=== PATIENT | female | born 1930 | race Caucasian/White ===

== ENCOUNTER 2019-02-07 23:43 | Emergency (ER) | payer MEDICARE, OTHER ==
[~2019-02-07] VITALS: Ht 175.3 cm; Wt 75.0 kg
[2019-02-07 23:47] VITALS: Ht 175.3 cm; Wt 75.0 kg
[2019-02-08] MEDS ORDERED: DIATR MEGLU/DIATRIZOATE SODIUM 30 ML SOLUTION PO ONE
[2019-02-08] MEDS ORDERED: IOHEXOL 300MG/ML 30 ML BTL ONE ×2 (00:16→00:17)
--- NOTE | 2019-02-08 01:10 | ERD ---
ER Documentation Chief Complaint Chief Complaint bib ra from [facility] for g-tube replacement HPI This is an 88-year-old female with a past medical history of hypertension, hyperlipidemia dementia, ambulatory dysfunction, dysphagia status post G-tube placement, residing at a senior care facility who is presenting for a G-tube replacement. The patient's G-tube reportedly fell out this evening. It is unclear if the patient excellently pulled it out or it was actually pulled out in another way. There is no bleeding. The patient is in no distress. History and physical is limited secondary to clinical condition. ROS Limited secondary to clinical condition Allergies Allergies: Coded Allergies: No Known Allergy (Unverified , 02/07/19) PMhx/Soc History of Surgery: Yes (G-tube placement, open heart surgery) Hx Neurological Disorder: Yes (Dementia) Hx Cardiac Disorders: Yes (Hypertension, hyperlipidemia) Hx Miscellaneous Medical Probl: Yes (Dysphasia) FmHx Limited secondary to clinical condition Physical Exam Vitals Vital Signs Date Temp Pulse Resp B/P (MAP) Pulse Ox O2 O2 Flow FiO2 Time Delivery Rate 02/08/19 98.6 82 22 130/61 96 Room Air 00:30 (84) 02/07/19 98.9 88 19 149/85 100 23:47 (106) Physical Exam Const: No acute distress Head: Atraumatic Eyes: Normal Conjunctiva ENT: Normal External Ears, Nose and Mouth. Neck: Trachea midline Resp: Clear to auscultation bilaterally Cardio: Regular rate and rhythm, no murmurs. Healed sternotomy scar. Abd: Gastrostomy in place. Soft, non tender, non distended. Normal bowel sounds Skin: No petechiae or rashes Back: No midline or flank tenderness Ext: No cyanosis, or edema Neur: Awake and alert. Results 24 hrs Current Medications Medications Dose Sig/Dimple Start Time Status Last (Trade) Ordered Route PRN Stop Time Admin Dose Reason Admin Diatrizoate 30 ml ONCE ONCE 02/08/19 DC Meglum/ PO 00:00 Diatrizoate 02/08/19 00:01 Sod (Gastrografin 66-10 Solution) Iohexol 30 ml STK-MED 02/08/19 DC 02/08/19 (Omnipaque ONCE .ROUTE 00:16 00:28 300mg/ ml) 02/08/19 00:17 Iohexol 30 ml STK-MED 02/08/19 DC (Omnipaque ONCE .ROUTE 00:17 300mg/ ml) 02/08/19 00:18 Procedures/[facility] MDM The patient presents for G-tube replacement. This was completed without difficulty. There is no evidence of bleeding or hemorrhage. There is no surrounding erythema or induration. I do not suspect cellulitis or abscess or other soft tissue infection. PROCEDURE G-tube Insertion Performer: Myself Preprocedure: Sterile technique, local prep and lubrication, time out performed. Location: Epigastrum Device: 18 [place] G-tube Technique: [place] pressure with twisting motion. Balloon inflation with 8 ml NS Results: Gastric contents expressed. Complication: none IMAGING X-ray Abdomen 1V Reviewer: Interpreted by me Free Air: None Bowel Gas: Nonspecific Contrast: Intraluminal DISCHARGE Upon reevaluation of the patient, symptoms have improved. No emergent diagnoses were identified. At this time, I feel that the patient stable for discharge. The patient was instructed to follow-up with a primary care physician in 1-3 days. The patient will be given strict precautions with which to return to the emergency department. Prescriptions: None The patient's blood pressure was elevated at greater than 120/80 while in the emergency department. The patient was otherwise stable with no evidence of hypertensive urgency or emergency. The patient does not require admission for blood pressure control. I have discussed with the patient the risks of hypertension. I have instructed the patient to return to the ER for any new or worsening symptoms including chest pain, shortness of breath, headache, blurred vision, confusion, nausea, vomiting or LOC. I have advised the patient to follow up with the primary care physician for outpatient monitoring and treatment for hypertension in 1-3 days. Disclaimer: Inadvertent spelling and grammatical errors are likely due to EHR/dictation software use and do not reflect on the overall quality of patient care. Note that the electronic time recorded on this note does not necessarily reflect the actual time of the patient encounter. Departure Diagnosis: Primary Impression: Encounter for feeding tube placement Condition: Stable Patient Instructions: Feeding Tube Replacement Additional Instructions: Thank you for for coming to [facility] for your care today. Please ask your nurse or provider if you have questions about your care today and do not leave until all your questions have been answered. Please use any medications given as directed and follow-up with your doctor (or the doctor you were referred to) in the next 1-3 days. If you do not have a primary care doctor you may follow up at the [facility] or [facility] (listed below). You may also use motrin and tylenol as needed for fever and/or pain unless instructed otherwise by your provider or nurse. Indications for more urgent follow-up have been discussed, but you may return to the Emergency Department at ANY time for any worrisome or worsening symptoms. If you have abdominal pain, please know that no test or exam you received is perfect and you should follow up within 8 hours for continued pain. If you had any imaging studies today, such as an X-Ray or CT Scan, these studies will be reviewed later by a radiologist. You will be called if there are important findings that were not identified today, so make sure the contact information you provided at registration is correct. If you received any narcotic pain control medicine today, such as Vicodin, Morphine or Dilaudid, your coordination and judgment may be affected for a number of hours. Please do not drive or operate heavy machinery, and you may want someone to assist you at home. If you were given a prescription for narcotic medication, be aware that it is very addictive- use sparingly and only if necessary. PLEASE SEEK FURTHER EVALUATION AND MANAGEMENT AT YOUR DOCTORS OFFICE WITHIN THE NEXT 1-3 DAYS. IT IS YOUR RESPONSIBILITY TO MAKE AN APPOINTMENT FOR FOLOW-UP CARE. IF YOU HAVE A PRIMARY DOCTOR, PLEASE CALL THEIR OFFICE TO SCHEDULE AN APPOINTMENT FOR FOLLOW UP. IF YOU DO NOT HAVE A PRIMARY DOCTOR YOU CAN CALL OUR PHYSICIAN REFERRAL HOTLINE AT IF YOU CAN NOT AFFORD TO SEE A PHYSICIAN YOU CAN CHOSE FROM THE FOLLOWING [facility], [facility] CLINICS: [facility] [id number] [facility] [address] [facility] [facility] [address] [facility] [address] [facility]. [facility]. [address] MD Feb 08, 2019 00:54
[2019-02-08 02:53] VITALS: BP 120/58; PULSE 78; RESP 16
== END 2019-02-08 02:59 | disposition home or self-care (01) ==
LOC: E/R 23:43
DX: K94.23 Gastrostomy malfunction (principal); I10 Essential (primary) hypertension; R40.2142 Coma scale, eyes open, spontaneous, at arrival to emergency department; R40.2352 Coma scale, best motor response, localizes pain, at arrival to emergency department; R40.2212 Coma scale, best verbal response, none, at arrival to emergency department
CPT/HCPCS: 43761; 74018; 99284; Q9967